=== PATIENT | female | born 1980 ===

== ENCOUNTER 2019-02-01 14:15 | Inpatient (IN) | payer OTHER ==
[~2019-02-01] VITALS: Ht 175.3 cm; Wt 280.0 kg
[2019-02-23] MEDS ORDERED: PRENATABS RX T1 EACH PO (23:04)
== END 2019-02-25 16:55 | disposition home or self-care (01) | DRG 807 ==
LOC: O/R 14:15 → LDR 02-23 22:52 → OB/GYN 02-23 22:52 → O/R 03-16 14:15
PROVIDERS: ADMIT Obstetrics & Gynecology
PROC: 10E0XZZ Delivery of Products of Conception, External Approach (ICD-10-PCS; principal; 2019-02-23)
PROC: 10907ZC Drainage of Amniotic Fluid, Therapeutic from Products of Conception, Via Natural or Artificial Opening (ICD-10-PCS; 2019-02-23)
PROC: 3E033VJ Introduction of Other Hormone into Peripheral Vein, Percutaneous Approach (ICD-10-PCS; 2019-02-23)
PROC: 4A1HXCZ Monitoring of Products of Conception, Cardiac Rate, External Approach (ICD-10-PCS; 2019-02-23)
DX: O80 Encounter for full-term uncomplicated delivery (principal); Z37.0 Single live birth; Z3A.37 37 weeks gestation of pregnancy

== ENCOUNTER 2019-02-23 10:36 | Outpatient (CLI) | payer OTHER ==
[2019-02-23] MEDS ORDERED: PRENATABS RX T1 EACH PO (23:04)
== END 2019-02-23 11:10 | disposition home or self-care (01) ==
LOC: NST 10:36
DX: Z34.83 Encounter for supervision of other normal pregnancy, third trimester (principal)